=== PATIENT | male | born 1950 | race African-American/Black ===

== ENCOUNTER 2018-03-28 07:23 | Day surgery (SDC) | payer MEDICARE, MEDICAID ==
[~2018-03-28] VITALS: Ht 182.9 cm; Wt 97.5 kg
--- NOTE | ~2018-03-28 | OP ---
PATIENT NAME: EARNEST HANEY MEDICAL RECORD: [id number] :54 LOCATION:D.OPS ADMISSION DATE: SURGEON: FELIX SNOW MD DATE OF OPERATION: 03/28/2018 PREOPERATIVE DIAGNOSES: 1. Recurrent right inguinal hernia. 2. Hypertension. 3. Diabetes mellitus. 4. Hypercholesterolemia. 5. Tobacco dependence syndrome. 6. Coronary artery disease. 7. Chronic obstructive pulmonary disease. POSTOPERATIVE DIAGNOSES: 1. Recurrent right inguinal hernia. 2. Hypertension. 3. Diabetes mellitus. 4. Hypercholesterolemia. 5. Tobacco dependence syndrome. 6. Coronary artery disease. 7. Chronic obstructive pulmonary disease. PROCEDURE: Recurrent right inguinal hernia repair with medium PHS mesh. SURGEON: Felix Snow MD COMMISSARY ASSISTANT: Serena Moore APRN REPORT OF PROCEDURE: The patient's right groin was prepped and draped in sterile fashion. An oblique incision was made above the inguinal ligament. Electrocautery was used to dissect through the subcutaneous tissues to the external oblique fascia. We encountered some old scar tissue at this point. This was teased down with electrocautery. We eventually found the external ring and opened up the external oblique fascia to the ring using electrocautery. The spermatic cord and its contents were elevated and a Fidelity was placed around it. The patient had an indirect hernia defect. This hernia sac was dissected from the spermatic cord and placed back into the abdominal cavity. I then found the ilioinguinal nerves and these were high ligated. An opening was made in the inguinal floor and the preperitoneal space of Retzius was opened up. A medium PHS mesh was then inserted and sutured down on all 4 sides using multiple interrupted 0 Vicryls. The wound was irrigated out with normal saline and care was taken to assure there was no sign of any bleeding. The external oblique fascia was closed with running 2-0 Vicryl, Karina's was closed with interrupted 3-0 Vicryl and the skin was closed with running subcutaneous 5-0 Monocryl. A total of 10 mL of 0.25% Marcaine with epinephrine was infused into the surrounding tissues. The wounds were dressed appropriately. COMPLICATIONS: None. CONDITION: Stable. ANESTHESIA: General endotracheal and local. BLOOD LOSS: Minimal. OPERATIVE REPORT [id number] EARNEST HANEY TRANSINT:[id number] Voice Confirmation ID: [id number] DOCUMENT ID: [id number] FELIX SNOW MD at 1441 CC: JUDIT PLASENCIA MD [id number] DICTATION DATE: 03/28/18 1048 INFORMATION RECEPTIONIST: 03/28/18 1108 REG [facility] [address] [place] [address]
[2018-03-28 07:52] LABS: BASOPHILS 0.4 % (0-2); EOSINOPHILS 3.3 % (0-7); HEMATOCRIT 38.6 % (42.0-54.0); HEMOGLOBIN 13.1 g/dL (13.5-17.5); IMMATURE GRANULOCYTES 0.1 % (0-5); LYMPHOCYTES 33.4 % (15-50); MCH 29.2 pg (26.0-34.0); MCHC 33.9 g/dL (31.0-37.0); MEAN PLATELET VOLUME 11.1 fL (7.4-10.4); MONOCYTES 9.6 % (2-11); NEUTROPHILS 53.2 % (40-80); PLATELET COUNT 174 10x3/uL (130-400); RBC 4.49 10x6/uL (4.20-6.10); RDW 15.1 % (11.5-14.5); WBC 8.1 10x3/uL (4.8-10.8)
[2018-03-28 08:01] LABS: ANION GAP 16.4 mmol/L (8-16); CALCIUM 9.6 mg/dL (8.5-10.1); CARBON DIOXIDE 21.9 mmol/L (21.0-32.0); CREATININE - SERUM 1.8 mg/dL (0.6-1.3); POTASSIUM - SERUM 4.3 mmol/L (3.5-5.1)
[2018-03-28] MEDS ORDERED: GLUCOTROL 5 MG T5 MG (08:42)
[2018-03-28] MEDS ORDERED: TENORMIN50 MG PO (08:43)
[2018-03-28] MEDS ORDERED: ISOSORBIDE DINI20 MG PO (08:43)
[2018-03-28] MEDS ORDERED: HYDRALAZINE HCL50 MG PO (08:44)
[2018-03-28] MEDS ORDERED: LISINOPRIL10 MG PO (08:45)
[2018-03-28] MEDS ORDERED: PRAVACHOL40 MG PO (08:46)
[2018-03-28] MEDS ORDERED: POTASSIUM CHLO20 MEQ PO (08:46)
[2018-03-28] MEDS ORDERED: GLUCOPHAGE1000 MG PO (08:47)
[2018-03-28] MEDS ORDERED: NORVASC10 MG PO (08:47)
[2018-03-28 08:58] VITALS: BP 192/93; Ht 182.9 cm; Wt 97.5 kg
[2018-03-28] MEDS ORDERED: NORCO 10-325 TA1 TAB PO (10:39)
== END 2018-03-28 13:30 | disposition home or self-care (01) ==
LOC: D.OPS 07:23 → D.PAN 08:00 → D.OPS 09:30
PROVIDERS: Surgery
DX: K40.91 Unilateral inguinal hernia, without obstruction or gangrene, recurrent (principal); I10 Essential (primary) hypertension; E11.9 Type 2 diabetes mellitus without complications